=== PATIENT | male | born 1965 | race Caucasian/White ===

== ENCOUNTER 2018-10-27 07:02 | Inpatient (IN) | payer BC ==
[~2018-10-27] VITALS: Ht 172.7 cm; Wt 108.9 kg
--- NOTE | 2018-10-27 07:01 | ER Report ---
History and Physical Time Seen By MD: 07:00 HPI/ROS CHIEF COMPLAINT: Abdominal pain, hypoxia HISTORY OF PRESENT ILLNESS: Patient is a 53-year-old male here with complaints of midepigastric abdominal pain, acute onset shortness of breath, general malaise. 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 Patient reports that he was unable to take deep breath and developed respiratory distress prompting him to call EMS. Patient was noted to be hypoxic at time of EMS arrival. Patient denies history of smoking, lung disease. He does have a history of a cholecystectomy but denies other abdominal surgeries in the past. He does have a history of hypertension on lisinopril, GERD on pantoprazole but denies other medical history. Patient arrived in the emergency department with a nonrebreather in place. Denies history of coronary artery disease, kidney disease, bleeding disorders, history of clots. REVIEW OF SYSTEMS: Constitutional: No fever, no chills. Eyes: No discharge. ENT: No sore throat. Cardiovascular: No chest pain, no palpitations. Respiratory: No cough, + shortness of breath. Gastrointestinal: + mid epigastric abdominal pain, + nausea and vomiting. Genitourinary: No hematuria. Musculoskeletal: No back pain. Skin: No rashes. Neurological: No headache. Allergies: Coded Allergies: Latex (Verified Allergy, Intermediate, RASH, 01/07/11) Home Meds Reported Medications Acetaminophen/Hydrocodone (Lortab 5/325 Mg) 5 Mg/325 Mg Tab, 1 - 2 TAB PO Q4H PRN, PAIN, #30 0 Refills 04/16/11 Ketorolac Tromethamine (Toradol) 10 Mg Tab, 10 MG PO QID, 0 Refills 04/16/11 Metoprolol Succinate (Metoprolol Succinate) 50 Mg Tab.sr.24h, 50 MG PO BID, 0 Refills 04/12/11 Pantoprazole Sod (Protonix) 40 Mg Tabec, 40 MG PO QDAY, 0 Refills 04/12/11 Lisinopril (Lisinopril) 40 Mg Tablet, 40 MG PO QDAY, 0 Refills 04/12/11 Hydrochlorothiazide (Hydrochlorothiazide) 25 Mg Tab, 25 MG PO QDAY, 0 Refills 04/12/11 Constitutional Vital Sign - Last 24 Hours 10/27/18 10/27/18 10/27/18 10/27/18 07:04 07:21 07:26 07:26 Temp 97.7 Pulse 114 105 Resp 32 17 B/P (MAP) 154/107 Pulse Ox 97 97 O2 Delivery Room Air Non-Rebreather O2 Flow Rate 15.0 13.0 10/27/18 07:38 Temp 97.7 O2 Delivery Non-Rebreather O2 Flow Rate 15 Physical Exam General Appearance: The patient is alert, has no immediate need for airway protection and no signs of toxicity. + anxious appearing, moderate distress Eyes: Pupils equal and round no pallor or injection. ENT, Mouth: Mucous membranes are moist. Respiratory: There are no retractions, lungs are clear to auscultation Cardiovascular: + tachy, regular Gastrointestinal: Abdomen is distended with hypoactive bowel sounds, + significant mid epigastric tenderness on palpation Neurological: No focal neuro deficits Skin: Warm and dry, no rashes. Musculoskeletal: Neck is supple non tender. Extremities are nontender, nonswollen and have full range of motion. DIFFERENTIAL DIAGNOSIS: After history and physical exam differential diagnosis was considered for abdominal pain including but not limited to appendicitis, gastritis and urinary tract infection.shortness of breath including but not limited to pulmonary infectious process, COPD, asthma, pulmonary embolus and co ngestive heart failure. Medical Decision Making Data Points Result Diagram: 10/27/18 0700 10/27/18 0700 Laboratory Hematology Test 10/27/18 07:00 10/27/18 07:32 Red Blood Count 5.67 M/uL (4.00-5.60) Mean Corpuscular Volume 94.3 fL (80.0-96.0) Mean Corpuscular Hemoglobin 32.5 pg (26.0-33.0) Mean Corpuscular Hemoglobin Concent 34.5 g/dL (32.0-36.0) Red Cell Distribution Width 13.3 % (11.5-14.5) Mean Platelet Volume 8.4 fL (7.2-11.1) Neutrophils (%) (Auto) 80.3 % (39.4-72.5) Lymphocytes (%) (Auto) 11.7 % (17.6-49.6) Monocytes (%) (Auto) 6.5 % (4.1-12.4) Eosinophils (%) (Auto) 0.8 % (0.4-6.7) Basophils (%) (Auto) 0.7 % (0.3-1.4) Nucleated RBC Relative Count (auto) 0.3 /100WBC Neutrophils # (Auto) 8.9 K/uL (2.0-7.4) Lymphocytes # (Auto) 1.3 K/uL (1.3-3.6) Monocytes # (Auto) 0.7 K/uL (0.3-1.0) Eosinophils # (Auto) 0.1 K/uL (0.0-0.5) Basophils # (Auto) 0.1 K/uL (0.0-0.1) Nucleated RBC Absolute Count (auto) 0.04 K/uL Prothrombin Time 13.3 seconds (12.0-14.4) Prothromb Time International Ratio 1.01 Activated Partial Thromboplast Time 26 seconds (23-35) D-Dimer Quantitative (PE/DVT) 0.51 ug/ml (0-0.50) Sodium Level 142 mmol/L (137-145) Potassium Level 4.0 mmol/L (3.5-5.0) Chloride Level 99 mmol/L (98-107) Carbon Dioxide Level 30 mmol/L (22-30) Blood Urea Nitrogen 21 mg/dl (9-21) Creatinine 1.40 mg/dl (0.66-1.25) Glomerular Filtration Rate Calc 53.0 Random Glucose 131 mg/dl (75-110) Lactate 2.7 mmol/L (0.7-2.1) Calcium Level 10.3 mg/dl (8.4-10.2) Total Bilirubin 4.9 mg/dl (0.2-1.3) Aspartate Amino Transf (AST/SGOT) 50 U/L (0-35) Alanine Aminotransferase (ALT/SGPT) 56 U/L (0-56) Alkaline Phosphatase 92 U/L (0-126) Troponin I < 0.012 ng/ml B-Type Natriuretic Peptide < 5 pg/ml (0-100) Total Protein 9.2 g/dl (6.3-8.2) Albumin 4.8 g/dl (3.5-5.0) Blood Gas Patient Temperature 97.7 DEGREES Venous Blood pH 7.46 (7.31-7.41) Venous Blood Partial Pressure CO2 34 mmHg Venous Blood Partial Pressure O2 < 35 mmHg Venous Blood HCO3 24 mmol/L Venous Blood Oxygen Saturation 47 % Venous Blood Base Excess 0 mmol/L Oxygen Liters/Minute 15l Chemistry Test 10/27/18 07:00 10/27/18 07:32 White Blood Count 11.0 k/uL (4.5-11.0) Red Blood Count 5.67 M/uL (4.00-5.60) Hemoglobin 18.4 g/dL (14.0-18.0) Hematocrit 53.5 % (42.0-52.0) Mean Corpuscular Volume 94.3 fL (80.0-96.0) Mean Corpuscular Hemoglobin 32.5 pg (26.0-33.0) Mean Corpuscular Hemoglobin Concent 34.5 g/dL (32.0-36.0) Red Cell Distribution Width 13.3 % (11.5-14.5) Platelet Count 198 K/uL (150-450) Mean Platelet Volume 8.4 fL (7.2-11.1) Neutrophils (%) (Auto) 80.3 % (39.4-72.5) Lymphocytes (%) (Auto) 11.7 % (17.6-49.6) Monocytes (%) (Auto) 6.5 % (4.1-12.4) Eosinophils (%) (Auto) 0.8 % (0.4-6.7) Basophils (%) (Auto) 0.7 % (0.3-1.4) Nucleated RBC Relative Count (auto) 0.3 /100WBC Neutrophils # (Auto) 8.9 K/uL (2.0-7.4) Lymphocytes # (Auto) 1.3 K/uL (1.3-3.6) Monocytes # (Auto) 0.7 K/uL (0.3-1.0) Eosinophils # (Auto) 0.1 K/uL (0.0-0.5) Basophils # (Auto) 0.1 K/uL (0.0-0.1) Nucleated RBC Absolute Count (auto) 0.04 K/uL Prothrombin Time 13.3 seconds (12.0-14.4) Prothromb Time International Ratio 1.01 Activated Partial Thromboplast Time 26 seconds (23-35) D-Dimer Quantitative (PE/DVT) 0.51 ug/ml (0-0.50) Glomerular Filtration Rate Calc 53.0 Lactate 2.7 mmol/L (0.7-2.1) Calcium Level 10.3 mg/dl (8.4-10.2) Total Bilirubin 4.9 mg/dl (0.2-1.3) Aspartate Amino Transf (AST/SGOT) 50 U/L (0-35) Alanine Aminotransferase (ALT/SGPT) 56 U/L (0-56) Alkaline Phosphatase 92 U/L (0-126) Troponin I < 0.012 ng/ml B-Type Natriuretic Peptide < 5 pg/ml (0-100) Total Protein 9.2 g/dl (6.3-8.2) Albumin 4.8 g/dl (3.5-5.0) Blood Gas Patient Temperature 97.7 DEGREES Venous Blood pH 7.46 (7.31-7.41) Venous Blood Partial Pressure CO2 34 mmHg Venous Blood Partial Pressure O2 < 35 mmHg Venous Blood HCO3 24 mmol/L Venous Blood Oxygen Saturation 47 % Venous Blood Base Excess 0 mmol/L Oxygen Liters/Minute 15l Coagulation Test 10/27/18 07:00 Prothrombin Time 13.3 seconds Prothromb Time International Ratio 1.01 Activated Partial Thromboplast Time 26 seconds D-Dimer Quantitative (PE/DVT) 0.51 ug/ml EKG/Imaging EKG Interpretation 12 lead EKG: Sinus tachycardia, rate 101, QTc 456, no ischemic changes Rhythm: normal sinus rhythm Monitor Interpretation: Normal Sinus Rhythm ED Course/Re-evaluation ED Course Patient is a 53-year-old male here with complaints of profound shortness breath, hypoxia with no history of lung disease, midepigastric abdominal pain, abdominal distention, tenderness on exam which was acute in onset starting overnight. 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 Patient called 911 due to shortness breath and respiratory distress. Patient was placed on a nonrebreather mask due to hypoxia. He does have a history of hypertension on lisinopril, GERD on pantoprazole but denies other medical history aside from a cholecystectomy in 2010. Patient was given a DuoNeb, normal saline bolus, Dilaudid, Zofran for symptom management. CT imaging confirms a small bowel obstruction, nasogastric tube was placed for decompression due to significant distention of the gastric bubble. Patient was also noted to have acute kidney injury with no prior history of kidney disease per patient report. Patient did not have a leukocytosis at time of evaluation but the duct and elevated lactate of 2.7. Depart Departure Latest Vital Signs Vital Signs Date Time Temp Pulse Resp B/P (MAP) Pulse Ox O2 Delivery O2 Flow Rate FiO2 10/27/18 07:38 97.7 Non-Rebreather 15 10/27/18 07:26 97 10/27/18 07:26 105 17 10/27/18 07:04 154/107 Condition: Stable Disposition: HOME OR SELF-CARE KEO BAILON DO Oct 27, 2018 07:01
[~2018-10-27 07:02] MED LIST: HCTZ25 PO; KET10 PO; LISI-374 PO; LOR5/325 PO; METO-259 PO; PAN40 PO
[2018-10-27] MEDS ORDERED: NS(*) 0.9% 1000 ML BAG 1,000 ML IV ONE ×2 (07:05→08:25)
[2018-10-27] MEDS ORDERED: ONDANSETRON 4 MG/2 ML VIAL IVP ONE (07:05)
[2018-10-27] MEDS ORDERED: HYDROMORPHONE HCL 1 MG/ML SYRINGE IVP ONE (07:05)
[2018-10-27] MEDS ORDERED: ALBUTEROL/IPRATROPIUM 3 ML NEB NEB SCH (07:05)
[2018-10-27 07:26] LABS: PLATELET COUNT, AUTOMATED 198 K/uL (150-450)
[2018-10-27] MEDS ORDERED: IOPAMIDOL 76% 100 ML INFUS BTL 100 ML ONE (07:30)
[2018-10-27 07:46] LABS: INR 1.01
--- NOTE | 2018-10-27 08:10 | EKG ---
FAC[place] [facility] [place] NAME: CAROLIN HOGUE : [id number] MR: [id number] V: [id number] EXAM DATE: ORDERING PHYSICIAN: KEO BAILON TECHNOLOGIST: BROWN Christianson Reason : SOB Blood Pressure : / mmHG Vent. Rate : 101 BPM Atrial Rate : 101 BPM P-R Int : 154 ms QRS Dur : 090 ms QT Int : 352 ms P-R-T Axes : 051 -60 036 degrees QTc Int : 456 ms Sinus tachycardia Anterolateral infarct , age undetermined No ST-T abnormalities No previous ECGs available Confirmed by PATEL CRUMP ([id number]) on 10/27/2018 1:26:29 PM Referred By: ADAMARIS Confirmed By:PATEL CRUMP
[2018-10-27] MEDS ORDERED: PIPERACILLIN/TAZO*3.375GM VIAL 3.375 GM in NS(*) 0.9% 100 ML ADDVANT BAG 100 ML IVPB ONE (08:25)
--- NOTE | 2018-10-27 08:27 | RADIOLOGY IMAGING REPORT ---
FACILITY: [facility] - [place] PATIENT NAME: Mark Akers : 1965 MR: [id number] V: [id number] EXAM DATE: ORDERING PHYSICIAN: KEO BAILON TECHNOLOGIST: Location: [facility] Patient: Mark Akers : 1965 Visit/Account:[id number] Date of Sevice: 10/27/2018 EXAMINATION: CT chest with IV contrast CT abdomen with IV contrast CT pelvis with IV contrast HISTORY: Shortness of breath, abdominal pain, desaturation. COMPARISON: Chest radiograph and KUB from 10/27/2018. TECHNIQUE: Axial images were taken through the chest, abdomen and pelvis during injection of nonion ic iodinated intravenous contrast. Sagittal and coronal reformatted images are also submitted. CONTRAST: 75 mL of IV Isovue-370. One of the following dose optimization techniques was utilized in the performance of this exam: Autom ated exposure control; adjustment of the mA and/or kV according to the patient's size; or use of an i terative reconstruction technique. Specific details can be referenced in the facility's radiology C T exam operational policy. FINDINGS: CT CHEST: Lungs/pleura: Minimal patchy dependent opacities bilaterally. No focal consolidation or pleural effu essence. Mediastinum/nasir: Small sliding hiatal hernia. The esophagus is fluid-filled to the upper mediastinum . Heart/pericardium: Negative. Vessels: Mild atherosclerotic calcifications of the coronary arteries. Musculoskeletal/body wall: Negative. Lymph nodes: Negative. Lower neck: Negative. CT ABDOMEN AND PELVIS: Liver/biliary: The liver is homogeneous. Previous cholecystectomy. No biliary ductal dilatation. Pancreas: Negative. Spleen: Negative. Adrenal glands: Negative. Kidneys: There is a 5.7 cm simple cyst of the left inferior pole, with Hounsfield units of -3. Pelvic structures: Coarse calcifications in the prostate. Bowel: There is a small sliding hiatal hernia. The stomach is moderately distended with fluid. There is progressive distention of small bowel loops from the proximal jejunum to the mid ileum in the righ t mid abdomen. Mild wall enhancement of the small bowel loops which measure up to 4 cm. There are sca ttered air-fluid levels. There is a transition point in the right mid abdomen (image 125 series 2). T here is mild wall enhancement of the small bowel loop at the transition point. The terminal ileum is normal in caliber. The colon is decompressed. Normal caliber appendix. Minimal diverticulosis of the colon without adjacent inflammation. Peritoneum/retroperitoneum/mesenteries: Negative. Vessels: Negative. Musculoskeletal/body wall: Negative. Lymph nodes: Negative. IMPRESSION: 1. Acute small bowel obstruction with a transition point in the right midabdomen. Mild wall enhanceme nt of the small bowel loop at the transition point could indicate mild inflammation, such as due to C rohn's disease, or the obstruction could be due to surgical adhesions. 2. Previous cholecystectomy. 3. Small sliding hiatal hernia with a fluid-filled esophagus to the upper mediastinum. 4. Mild bibasilar atelectasis. 5. Mild coronary artery atherosclerosis. 6. 5.7 cm simple left renal cyst. These findings were discussed with KEO BAILON at 10/27/2018 7:55 AM. Report Dictated By: Sanaz Suarez MD at 10/27/2018 7:53 AM Report E-Signed By: Sanaz Suarez MD at 10/27/2018 8:22 AM WSN:[id number]
--- NOTE | 2018-10-27 08:29 | RADIOLOGY IMAGING REPORT ---
FACILITY: [facility] PATIENT NAME: Mark Akers : 1965 MR: [id number] V: [id number] EXAM DATE: ORDERING PHYSICIAN: KEO BAILON TECHNOLOGIST: Location: [facility] - [place], [place] Patient: Mark Akers : 1965 Visit/Account:[id number] Date of Sevice: 10/27/2018 EXAMINATION: Portable chest radiograph single view at 0713 hours HISTORY: Respiratory distress. COMPARISON: 04/12/2011. FINDINGS: A single portable AP view of the chest is obtained. Lines/tubes: None. Lungs/pleura: No focal consolidation or pleural effusion. Heart: Negative. Mediastinum: Negative. Bony structures/body wall: Negative. IMPRESSION: No radiographic evidence of acute cardiopulmonary disease. Report Dictated By: Sanaz Suarez MD at 10/27/2018 8:22 AM Report E-Signed By: Sanaz Suarez MD at 10/27/2018 8:25 AM WSN:[id number]
--- NOTE | 2018-10-27 08:31 | RADIOLOGY IMAGING REPORT ---
FAC[place]: [facility] [place]IENT NAME: Mark Akers : 1965 MR: [id number] V: [id number] EXAM DATE: ORDERING PHYSICIAN: KEO BAILON TECHNOLOGIST: Location: [facility] [place] Patient: Mark Akers : 1965 Visit/Account:[id number] Date of Sevice: 10/27/2018 EXAMINATION: Abdominal radiograph single view HISTORY: Respiratory distress, abdominal pain. COMPARISON: CT chest, abdomen and pelvis from 10/27/2018. FINDINGS: A single AP supine view of the abdomen is obtained. Lines/tubes: None. Bowel gas pattern: There are distended loops of small bowel in the mid upper abdomen and the right s adolph of the abdomen measuring over 4 cm in diameter. There is a paucity of colonic gas and a paucity o f small bowel gas otherwise. Soft tissues: Negative. Bony structures: Negative. Visualized lung bases: Negative. IMPRESSION: Findings suspicious for small bowel obstruction. Report Dictated By: Sanaz Suarez MD at 10/27/2018 8:26 AM Report E-Signed By: Sanaz Suarez MD at 10/27/2018 8:27 AM WSN:[id number]
--- NOTE | 2018-10-27 08:59 | RADIOLOGY IMAGING REPORT ---
FACILITY: [facility] [place] PATIENT NAME: Mark Akers : 1965 MR: [id number] V: [id number] EXAM DATE: ORDERING PHYSICIAN: KEO BAILON TECHNOLOGIST: Location: [facility] Patient: Mark Akers : 1965 Visit/Account:[id number] Date of Sevice: 10/27/2018 Exam type: CHEST SINGLE AP History: SBO/NG tube placement Comparison: October 27, 2018 at 7:13 AM. Findings: There are hypoventilatory changes from a limited inspiratory effort. No evidence of pleural effusion s or overt pulmonary edema. Cardiac silhouette is normal in size. There has been placement of an es ophagogastric tube. The distal tip is not ideally seen due to patient's body habitus although appear s to pass through the expected location of the GE junction. IMPRESSION: 1. Hypoventilatory changes from a limited inspiratory effort Distal tip of the esophagogastric tube is not ideally seen due to patient's body habitus although mame ears to pass to the expected location of the GE junction. If of concern a repeat chest recommended f or confirmation Report Dictated By: Amna Watts MD at 10/27/2018 8:50 AM Report E-Signed By: Amna Watts MD at 10/27/2018 8:53 AM WSN:[email or web address]
[2018-10-27] MEDS ORDERED: ONDANSETRON 4 MG/2 ML VIAL IVP PRN (09:15)
[2018-10-27] MEDS ORDERED: FLUSH 10 ML SYR IVP PRN (09:15)
[2018-10-27] MEDS ORDERED: MORPHINE 2 MG/ML SYR IVP PRN (09:15)
[2018-10-27] MEDS ORDERED: ACETAMINOPHEN(*)1000 MG/100 ML 100 ML IVPB PRN (09:15)
[2018-10-27 09:55] VITALS: BP 151/99
[2018-10-27 12:21] VITALS: BP 141/92
--- NOTE | 2018-10-27 12:43 | Gen Surgery History & Physical ---
History of Present Illness Chief Complaint Abdominal pain History of Present Illness 53-year-old gentleman comes into the emergency room, brought in by EMS, with a one-day history of abdominal pain. He reports that yesterday afternoon and korey ambreen he felt very tired and went to bed early but was in no pain at that point. When he woke up this morning he also felt tired but then when he went to work he started experiencing severe upper abdominal pain. He thought he was having a heart attack. He developed shortness of breath and he felt lightheaded and presyncopal. He also started vomiting bilious fluid. EMS was notified and they responded and brought him into the emergency room. A CT scan was obtained and is suspicious for a small bowel obstruction. His surgical history includes a incisional hernia repair with mesh and a laparoscopic cholecystectomy both several years ago. He has had no other abdominal surgeries. He has no previous history of bowel obstructions. His last bowel movement was yesterday, he had 2, the 1st was formed and the 2nd was diarrhea. He's had no flatus, according to him, for several days. An NG tube was inserted in the emergency room and he reports feeling better since this was inserted. History Problems: (1) GERD (gastroesophageal reflux disease) Status: Chronic (2) Hypertension Status: Chronic Home Meds Reported Medications Pantoprazole Sod (Protonix) 40 Mg Tabec, 40 MG PO QDAY, 0 Refills 04/12/11 Lisinopril (Lisinopril) 40 Mg Tablet, 40 MG PO QDAY, 0 Refills 04/12/11 Discontinued Reported Medications Acetaminophen/Hydrocodone (Lortab 5/325 Mg) 5 Mg/325 Mg Tab, 1 - 2 TAB PO Q4H PRN, PAIN, #30 0 Refills 04/16/11 Ketorolac Tromethamine (Toradol) 10 Mg Tab, 10 MG PO QID, 0 Refills 04/16/11 Metoprolol Succinate (Metoprolol Succinate) 50 Mg Tab.sr.24h, 50 MG PO BID, 0 Refills 04/12/11 Hydrochlorothiazide (Hydrochlorothiazide) 25 Mg Tab, 25 MG PO QDAY, 0 Refills 04/12/11 Allergies: Coded Allergies: latex (Verified Allergy, Intermediate, RASH, 10/27/18) Review of Systems All Systems Reviewed/Normal: Yes, Except as Noted Gastrointestinal: Nausea, Vomiting, Abdominal Pain Exam General Appearance: Alert, Awake, No Acute Distress, Afebrile Neuro: No Gross deficits Eyes: PERRLA GI: Other (soft, mild tenderness to palpation in epigastrium. Heart did say whether there is any distention because his abdomen is somewhat protuberant due to obesity. There is no palpable mass or bulge. He does have several abdominal well-healed surgical scars related to his previous hernia repair and laparo scopic cholecystectomy. His exam is benign, no peritoneal signs.) Extremities: Warm, Perfused Psych: Alert & Oriented X3, Appropriate Mood & Affect Medical Decision Making Data Points Result Diagram: 10/27/18 0700 10/27/18 0700 Assessment and Plan Problems: (1) Small bowel obstruction Status: Acute Assessment & Plan: 10/27/18: Patient is admitted and an NG tube has been inserted. We'll continue with bowel rest, NG tube decompression, IV fluids, and symptomatic relief but we'll try to minimize opioids. I have explained bowel obstructions to the patient in detail. We will give this a couple of days to resolve without intervention. If he is not any better by tomorrow morning then we'll consider a Gastrografin small bowel follow-through. If his obstruction fails to resolve over the next 2 or 3 days then we will need to consider surgical exploration. I have explained this to him in detail and he seems to understand this plan and his questions have been answered. He seems agreeable with proceeding with this plan as I have described it above. Condition Stable Time Spent: < 30 min Venous Thromboembolism VTE Risk Physician Assess for VTE Risk: Yes Patient's VTE Risk: Low VTE Diagnostic Test 2 Days Prior to Admit: No Antithrombotics Is Pt On Any Antithrombotics?: No ANALISA NOLAN MD Oct 27, 2018 12:43
[2018-10-27 18:35] VITALS: BP 144/95
[2018-10-27] MEDS: BENZOCAINE/MENTHOL 1 EACH LOZG PO PRN (20:02)
[2018-10-27] MEDS: NS(*) 0.9% 1000 ML BAG 1,000 ML IV PRN (20:02)
[2018-10-27] MEDS: METOPROLOL SUCC XL 50 MG TABCR 50 MG TAB.ER.24H PO SCH (20:03)
[2018-10-28 00:03] VITALS: BP 141/90
[2018-10-28] MEDS: NS(*) 0.9% 1000 ML BAG 1,000 ML IV PRN ×2 (04:32→15:07)
[2018-10-28 05:44] LABS: PLATELET COUNT, AUTOMATED 141 K/uL (150-450)
[2018-10-28] MEDS: BENZOCAINE/MENTHOL 1 EACH LOZG PO PRN ×2 (06:15→11:41)
--- NOTE | 2018-10-28 06:26 | RADIOLOGY IMAGING REPORT ---
FACILITY: [facility] [place] PATIENT NAME: Mark Akers : 1965 MR: [id number] V: [id number] EXAM DATE: ORDERING PHYSICIAN: ANALISA NOLAN TECHNOLOGIST: Location: [facility] [place] Patient: Mark Akers : 1965 Visit/Account:[id number] Date of Sevice: 10/28/2018 Abdomen: Indication: Possible obstruction. Technique: 2 supine views of the abdomen were obtained. Comparison: 10/27/2018 Findings: There is persistent mild dilatation of an isolated small bowel loop in the left mid abdomen . The small bowel gas pattern is otherwise unremarkable. The colon is not dilated. Air can be visuali zed in the rectum. There are no signs of obstruction. The skeletal and soft tissue structures are unc hanged. Impression: No evidence of obstruction. Report Dictated By: Tim Brown MD at 10/28/2018 6:20 AM Report E-Signed By: Tim Brown MD at 10/28/2018 6:22 AM WSN:[id number]
--- NOTE | 2018-10-28 06:41 | General Surgery Progress Note ---
Subjective Progress Notes Subjective Pt is feeling better. Reports a couple of small flatus overnight. Upper abdominal pain is improving. Physical Exam Vital Signs Date Time Temp Pulse Resp B/P (MAP) Pulse Ox O2 Delivery O2 Flow Rate FiO2 10/28/18 00:03 98.2 69 18 141/90 (107) 91 Nasal Cannula 2.0 Intake and Output 10/28/18 06:59 Intake Total 3100 ml Output Total 1600 ml Balance 1500 ml Intake IV Total 3100 ml Output Urine Total 1000 ml Gastric Drainage Total 600 ml General Appearance: Alert, Awake, No Acute Distress, Afebrile GI: Soft and Non-Tender Extremities: Warm, Perfused Result Diagram: 10/28/18 0510/28/18 05 Monitor Interpretation: Normal Sinus Rhythm Assessment and Plan Problems: (1) Small bowel obstruction Status: Acute Assessment & Plan: 10/27/18: Patient is admitted and an NG tube has been inserted. We'll continue with bowel rest, NG tube decompression, IV fluids, and symptomatic relief but we'll try to minimize opioids. I have explained bowel obstructions to the patient in detail. We will give this a couple of days to resolve without intervention. If he is not any better by tomorrow morning then we'll consider a Gastrografin small bowel follow-through. If his obstruction fails to resolve over the next 2 or 3 days then we will need to consider surgical exploration. I have explained this to him in detail and he seems to understand this plan and his questions have been answered. He seems agreeable with proceeding with this plan as I have described it above. 10/28/18: Pt seems to be improving. Reporting some flatus. NG output not a lot. KUB improved. Will get a water-soluble SBFT today. Condition Stable. Time Spent: < 30 min Exam Sepsis Risk: No Definite Risk ANALISA NOLAN MD Oct 28, 2018 06:41
[2018-10-28 07:14] VITALS: BP 122/86
[2018-10-28] MEDS ORDERED: DIATRIZOATE MEGL/DIATRIZOA SOD 120 ML SOLN PO ONE (08:16)
[2018-10-28] MEDS: METOPROLOL SUCC XL 50 MG TABCR 50 MG TAB.ER.24H PO SCH ×3 (09:00→21:31)
[2018-10-28] MEDS: PANTOPRAZOLE SOD 40 MG IV VIAL IVP SCH (09:22)
[2018-10-28] MEDS: HYDROCHLOROTHIAZIDE 25 MG TAB PO SCH (09:22)
[2018-10-28] MEDS: LISINOPRIL 20 MG TAB PO SCH (09:22)
[2018-10-28] MEDS: ENOXAPARIN 40 MG/0.4ML SYR SC SCH (09:23)
[2018-10-28 11:41] VITALS: BP 129/96
[2018-10-28 15:04] VITALS: BP 129/96
[2018-10-28 17:17] VITALS: Ht 172.7 cm; Wt 108.9 kg
--- NOTE | 2018-10-28 17:31 | RADIOLOGY IMAGING REPORT ---
FACILITY: [facility] - [place] PATIENT NAME: Mark Akers : 1965 MR: [id number] V: [id number] EXAM DATE: ORDERING PHYSICIAN: ANALISA NOLAN TECHNOLOGIST: Location: [facility] Patient: Mark Akers : 1965 Visit/Account:[id number] Date of Sevice: 10/28/2018 Exam type: SMALL BOWEL SERIES History: SBO, Water Soluble contrast only please Comparison: CT chest abdomen pelvis October 27, 2018. Findings: The patient received a dilute Gastrografin suspension as a GI contrast. On the immediate image contr ast was pooling in the gastric fundus. On the 15 minute image contrast had passed to the jejunum in the left-sided the abdomen without evidence of obstruction. On the one hour image the contrast did p ass through the entire small bowel and had reached the left-sided colon. There is no evidence of sma ll bowel obstruction at this time. Fluoroscopy was not performed IMPRESSION: 1. The water-soluble contrast reached the left-sided colon in one hour. No evidence of small bowel obstruction at this time Report Dictated By: Amna Watts MD at 10/28/2018 5:24 PM Report E-Signed By: Amna Watts MD at 10/28/2018 5:26 PM WSN:[id number]
[2018-10-28 18:44] VITALS: BP 127/90
[2018-10-28] MEDS ORDERED: NS(*) 0.9% 1000 ML BAG 1,000 ML IV PRN (19:26)
[2018-10-28 23:08] VITALS: BP 120/85
[2018-10-29 03:11] VITALS: BP 136/93
--- NOTE | 2018-10-29 06:41 | General Surgery Progress Note ---
Subjective Progress Notes Subjective No complaints this morning. No abdominal pain or bloating. No N/V. Passing flatus and stools. Physical Exam Vital Signs Date Time Temp Pulse Resp B/P (MAP) Pulse Ox O2 Delivery O2 Flow Rate FiO2 10/29/18 03:11 98.2 56 14 136/93 (107) 96 Oxy Mask 2.0 Intake and Output 10/29/18 06:59 Intake Total 1305 ml Output Total 300 ml Balance 1005 ml Intake Oral 200 ml IV Total 1105 ml Output Urine Total 300 ml Gastric Drainage Total 0 ml # Voids 2 # Bowel Movements 8 General Appearance: Alert, Awake, No Acute Distress, Afebrile GI: Soft and Non-Tender Extremities: Warm, Perfused Result Diagram: 10/28/18 0521 10/28/18 05 Monitor Interpretation: Normal Sinus Rhythm Assessment and Plan Problems: (1) Small bowel obstruction Status: Acute Assessment & Plan: 10/27/18: Patient is admitted and an NG tube has been inserted. We'll continue with bowel rest, NG tube decompression, IV fluids, and symptomatic relief but we'll try to minimize opioids. I have explained bowel obstructions to the patient in detail. We will give this a couple of days to resolve without intervention. If he is not any better by tomorrow morning then we'll consider a Gastrografin small bowel follow-through. If his obstruction fails to resolve over the next 2 or 3 days then we will need to consider surgical exploration. I have explained this to him in detail and he seems to understand this plan and his questions have been answered. He seems agreeable with proceeding with this plan as I have described it above. 10/28/18: Pt seems to be improving. Reporting some flatus. NG output not a lot. KUB improved. Will get a water-soluble SBFT today. 10/29/18: SBO resolved. SBFT with contrast quickly into colon without obstruction. NG removed and clear diet started last evening. Will let him have clear breakfast and if he does well with this then regular lunch. Possibly home later today. Condition Stable Time Spent: < 30 min Exam Sepsis Risk: No Definite Risk ANALISA NOLAN MD Oct 29, 2018 06:41
[2018-10-29 07:14] VITALS: BP 125/96
[2018-10-29] MEDS: PANTOPRAZOLE SOD 40 MG IV VIAL IVP SCH (08:41)
[2018-10-29] MEDS: LISINOPRIL 20 MG TAB PO SCH (08:42)
[2018-10-29] MEDS: HYDROCHLOROTHIAZIDE 25 MG TAB PO SCH (08:42)
[2018-10-29] MEDS: METOPROLOL SUCC XL 50 MG TABCR 50 MG TAB.ER.24H PO SCH ×2 (08:42→21:00)
[2018-10-29] MEDS: ENOXAPARIN 40 MG/0.4ML SYR SC SCH (08:43)
[2018-10-29 10:54] VITALS: BP 141/89
[2018-10-29 14:25] VITALS: BP 131/87
[2018-10-29 20:26] VITALS: BP 151/94
[2018-10-29 22:41] VITALS: BP 141/115
[2018-10-30 06:58] VITALS: BP 158/96
--- NOTE | 2018-10-30 08:11 | Short(Outpt) Discharge Summary ---
Discharge Summary Reason for Hosp/Final Diag: (1) Small bowel obstruction Status: Resolved Hospital Course & Plan: 10/27/18: Patient is admitted and an NG tube has been inserted. We'll continue with bowel rest, NG tube decompression, IV fluids, and symptomatic relief but we'll try to minimize opioids. I have explained bowel obstructions to the patient in detail. We will give this a couple of days to resolve without intervention. If he is not any better by tomorrow morning then we'll consider a Gastrografin small bowel follow-through. If his obstruction fails to resolve over the next 2 or 3 days then we will need to consider surgical exploration. I have explained this to him in detail and he seems to understand this plan and his questions have been answered. He seems agreeable with proceeding with this plan as I have described it above. 10/28/18: Pt seems to be improving. Reporting some flatus. NG output not a lot. KUB improved. Will get a water-soluble SBFT today. 10/29/18: SBO resolved. SBFT with contrast quickly into colon without obstruction. NG removed and clear diet started last evening. Will let him have clear breakfast and if he does well with this then regular lunch. Possibly home later today. 10/30/18: SBO resolved. Passing flatus and BMs. Tolerating diet. Had some cramps last evening but these resolved overnight, now feeling good this morning. Will d/c to home this morning. Departure Discharge to: Home, Self Care Discharge Instructions Home Meds Reported Medications Pantoprazole Sod (Protonix) 40 Mg Tabec, 40 MG PO QDAY, 0 Refills 04/12/11 Lisinopril (Lisinopril) 40 Mg Tablet, 40 MG PO QDAY, 0 Refills 04/12/11 Discontinued Reported Medications Acetaminophen/Hydrocodone (Lortab 5/325 Mg) 5 Mg/325 Mg Tab, 1 - 2 TAB PO Q4H PRN, PAIN, #30 0 Refills 04/16/11 Ketorolac Tromethamine (Toradol) 10 Mg Tab, 10 MG PO QID, 0 Refills 04/16/11 Metoprolol Succinate (Metoprolol Succinate) 50 Mg Tab.sr.24h, 50 MG PO BID, 0 Refills 04/12/11 Hydrochlorothiazide (Hydrochlorothiazide) 25 Mg Tab, 25 MG PO QDAY, 0 Refills 04/12/11 Diet: Regular Activity: As Tolerated Special Instructions: Go slow with your diet over the next several days and as you continue to feel better you can increase what you're eating. You can eat whatever you want to but, at least for a couple of days, eat less and eat slowly. ANALISA NOLAN MD Oct 30, 2018 08:11
[2018-10-30] MEDS: LISINOPRIL 20 MG TAB PO SCH (08:18)
[2018-10-30] MEDS: METOPROLOL SUCC XL 50 MG TABCR 50 MG TAB.ER.24H PO SCH (08:19)
[2018-10-30] MEDS: ENOXAPARIN 40 MG/0.4ML SYR SC SCH (08:19)
[2018-10-30] MEDS: PANTOPRAZOLE SOD 40 MG IV VIAL IVP SCH (08:19)
[2018-10-30] MEDS: HYDROCHLOROTHIAZIDE 25 MG TAB PO SCH (08:19)
== END 2018-10-30 12:05 | disposition home or self-care (01) | DRG 390 ==
LOC: ER 07:04 → MED 09:25
PROVIDERS: ADMIT Surgery; ATTEND Surgery
PROC: 0D9670Z Drainage of Stomach with Drainage Device, Via Natural or Artificial Opening (ICD-10-PCS; principal; 2018-10-27)
DX: K56.609 Unspecified intestinal obstruction, unspecified as to partial versus complete obstruction (principal); K21.9 Gastro-esophageal reflux disease without esophagitis; R06.03 Acute respiratory distress; I10 Essential (primary) hypertension; R09.02 Hypoxemia; Z90.49 Acquired absence of other specified parts of digestive tract
CPT/HCPCS: 36415; 71045; 71260; 74018; 74177; 74250; 82040; 82247; 82310; 82374; 82435; 82565; 82803; 82947; 83605; 83880; 84075; 84132; 84155; 84295; 84450; 84460; 84484; 84520; 85025; 85379; 85610; 85730; 86850; 86900; 86901; 93005; 94640; 96361; 96365; 96375; 99285; C9113; J0131; J1170; J1650; J2405; J2543; J7030; J7050; Q9967

== ENCOUNTER → 2019-06-09 | Outpatient (CLI) | payer BC ==
[2018-10-28 17:17] VITALS: BMI 36.5
--- NOTE | 2019-06-09 19:03 | RADIOLOGY IMAGING REPORT ---
FACILITY: [facility] PATIENT NAME: Mark Akers : 1965 MR: [id number] V: [id number] EXAM DATE: ORDERING PHYSICIAN: NATASHA HILLIARD TECHNOLOGIST: Location: [facility] [place] Patient: Mark Akers : 1965 Visit/Account:[id number] Date of Sevice: 06/09/2019 ADDENDUM #1 ADDENDUM: Body of the report should say nonobstructive bowel pattern. Report Dictated By: Jonathan Hernandez MD at 06/10/2019 4:11 PM Report E-Signed By: Jonathan Hernandez MD at 06/10/2019 4:11 PM ORIGINAL REPORT KUB SINGLE VIEW ABDOMEN HISTORY: Fever and chills for 2 days COMPARISON: X-ray examination 10/28/2018 FINDINGS: Obstructive bowel pattern. No dilated loop of bowel, pneumatosis or wall thickening. No pathologic ca lcification or acute bony finding. Lung bases are not included on this film. IMPRESSION: Nonobstructive bowel pattern. No radiographic evidence of acute pathology Report Dictated By: Jonathan Hernandez MD at 06/09/2019 6:56 PM Report E-Signed By: Jonathan Hernandez MD at 06/09/2019 6:57 PM WSN:[id number]
== END ==
LOC: RAD 15:42
PROVIDERS: ATTEND Family Medicine
DX: R10.84 Generalized abdominal pain (principal)
CPT/HCPCS: 74018

== ENCOUNTER → 2019-06-09 | Outpatient (REF) | payer BC ==
[2018-10-28 17:17] VITALS: BMI 36.5
== END ==
LOC: ZZSENDIN 11:11
PROVIDERS: ATTEND Family Medicine
DX: R10.84 Generalized abdominal pain (principal)
CPT/HCPCS: 83630; 87045; 87177; 87269

== ENCOUNTER → 2019-06-14 | Outpatient (CLI) | payer BC ==
[2018-10-28 17:17] VITALS: BMI 36.5
== END ==
LOC: US 15:25
PROVIDERS: ATTEND Family Medicine
DX: Z90.49 Acquired absence of other specified parts of digestive tract (principal)

== ENCOUNTER → 2019-06-15 | Outpatient (CLI) | payer BC ==
[2018-10-28 17:17] VITALS: BMI 36.5
--- NOTE | 2019-06-15 10:11 | RADIOLOGY IMAGING REPORT ---
FACILITY: [facility] - [place] PATIENT NAME: Mark Akers : 1965 MR: [id number] V: [id number] EXAM DATE: ORDERING PHYSICIAN: NATASHA HILLIARD TECHNOLOGIST: Location: Patient: Mark Akers : 1965 Visit/Account:[id number] Date of Sevice: 06/15/2019 EXAMINATION: Limited right upper quadrant ultrasound Additional Pertinent history: Elevated bilirubin. COMPARISON STUDIES: 12/31/2010. FINDINGS: Gallbladder: Surgically removed. Liver: Normal size and echotexture. No focal abnormality. Smooth surface. Portal vein is patent. No a scites. Common duct: normal 4.9 mm. Pancreas: Normal Right kidney: negative Proximal IVC/Aorta: negative IMPRESSION: Normal exam. Status post cholecystectomy. Report Dictated By: Jesus Alberto Carmichael at 06/15/2019 10:02 AM Report E-Signed By: Jesus Alberto Carmichael at 06/15/2019 10:03 AM WSN:[id number]
== END ==
LOC: US 08:28
PROVIDERS: ATTEND Family Medicine
DX: E80.7 Disorder of bilirubin metabolism, unspecified (principal); Z90.49 Acquired absence of other specified parts of digestive tract
CPT/HCPCS: 76705